=== PATIENT | female | born 1955 | race Caucasian/White ===

== ENCOUNTER 2016-05-28 14:25 | Inpatient (IN) | payer OTHER ==
[~2016-05-28] VITALS: Ht 157.5 cm; Wt 95.1 kg
[~2016-05-28 14:25] MED LIST: NAPROSYN500 MG PO; NOHOMEMEDS; PERCOCET 5/31 TABLET PO; RISPERDAL50 MG/2 ML IM
[2016-05-28] MEDS ORDERED: MELOXICAM7.5 MG PO (14:43)
[2016-05-28 16:21] LABS: HEMATOCRIT 34.6 % (36.0-46.0); MCH 29.3 PG (29.0-34.0); MCHC 32.1 G/DL (30.0-36.0); MCV 91.3 FL (83-99); MEAN PLAT.VOLUME 10.3 uM^3 (9.5-12.4); PLATELET COUNT 254 K/uL (156-360); RED BLOOD COUNT 3.79 M/uL (3.80-5.20); WHITE BLOOD COUNT 10.3 K/uL (4.1-10.2)
[2016-05-28 16:32] LABS: CHLORIDE 101 mEq/L (99-109); POTASSIUM 4.2 mEq/L (3.7-5.4); SODIUM 136 mEq/L (136-147)
[2016-05-28 16:33] LABS: GLUCOSE 99 mg/dL (70-99)
[2016-05-28 16:35] LABS: ANION GAP 10 MEQ/L (2-14)
[2016-05-28 16:37] LABS: GFR ESTIMATE (CALCULATED) > 59 mL/min/
[2016-05-28 16:38] LABS: UREA NITROGEN (BUN) 13 mg/dL (9-23)
[2016-05-28 16:43] LABS: TROP-I INTERPRETATION NEGATIVE; TROPONIN-I < 0.01 ng/mL (0.0-0.30)
[2016-05-28] MEDS ORDERED: RISPERDAL50 MG/2 ML IM (17:41)
[2016-05-28] MEDS ORDERED: THERAFLU MULTI1 EACH PO (17:42)
[2016-05-28] MEDS ORDERED: ROBITUSSIN100 MG/5 M PO (17:42)
[2016-05-28 21:15] VITALS: BP 161/79
[2016-05-29 06:29] LABS: HEMATOCRIT 32.9 % (36.0-46.0); MCH 29.4 PG (29.0-34.0); MCHC 32.2 G/DL (30.0-36.0); MCV 91.4 FL (83-99); PLATELET COUNT 235 K/uL (156-360); RBC DIS.WIDTH-SD 46.1 % (39-53); WHITE BLOOD COUNT 8.3 K/uL (4.1-10.2)
[2016-05-29 07:12] LABS: ANION GAP 7 MEQ/L (2-14); CHLORIDE 102 MEQ/L (99-109); GFR ESTIMATE (CALCULATED) > 59 mL/min/; GLUCOSE 77 mg/dL (70-99); POTASSIUM 3.9 MEQ/L (3.7-5.4); SAMPLE HEMOLYSIS CHECK 0; SAMPLE ICTERIC CHECK 0; SAMPLE LIPEMIA CHECK 0; SODIUM 136 MEQ/L (136-147); UREA NITROGEN (BUN) 11 mg/dL (9-23)
[2016-05-29 08:07] VITALS: BP 136/82
[2016-05-29 13:09] LABS: INTACT PARATHYROID HORMONE 7 pg/mL (10-69)
[2016-05-29 15:18] VITALS: BP 145/70
[2016-05-29 23:45] VITALS: BP 135/71
[2016-05-30 05:39] LABS: HEMATOCRIT 33.7 % (36.0-46.0); MCH 28.3 PG (29.0-34.0); MCHC 30.9 G/DL (30.0-36.0); MCV 91.8 FL (83-99); MEAN PLAT.VOLUME 10.9 uM^3 (9.5-12.4); PLATELET COUNT 229 K/uL (156-360); RBC DIS.WIDTH-SD 46.2 % (39-53); RED BLOOD COUNT 3.67 M/uL (3.80-5.20); WHITE BLOOD COUNT 9.2 K/uL (4.1-10.2)
[2016-05-30 06:22] LABS: ALKALINE PHOSPHATASE 185 IU/L (3-129); ANION GAP 5 MEQ/L (2-14); CHLORIDE 103 MEQ/L (99-109); GFR ESTIMATE (CALCULATED) > 59 mL/min/; GLUCOSE 95 mg/dL (70-99); POTASSIUM 4.1 MEQ/L (3.7-5.4); SAMPLE HEMOLYSIS CHECK 0; SAMPLE ICTERIC CHECK 0; SAMPLE LIPEMIA CHECK 0; SODIUM 136 MEQ/L (136-147); UREA NITROGEN (BUN) 12 mg/dL (9-23)
[2016-05-30 08:31] VITALS: BP 116/67
[2016-05-30 16:37] VITALS: BP 139/73
[2016-05-30 22:53] VITALS: BP 165/71
[2016-05-31 06:29] LABS: HEMATOCRIT 32.5 % (36.0-46.0); MCH 28.7 PG (29.0-34.0); MCHC 31.4 G/DL (30.0-36.0); MCV 91.5 FL (83-99); MEAN PLAT.VOLUME 10.9 uM^3 (9.5-12.4); PLATELET COUNT 222 K/uL (156-360); RBC DIS.WIDTH-CV 14.2 % (11.8-14.6); RED BLOOD COUNT 3.55 M/uL (3.80-5.20); WHITE BLOOD COUNT 7.4 K/uL (4.1-10.2)
[2016-05-31 06:54] LABS: ALKALINE PHOSPHATASE 177 IU/L (3-129); ANION GAP 6 MEQ/L (2-14); CHLORIDE 105 MEQ/L (99-109); GFR ESTIMATE (CALCULATED) > 59 mL/min/; GLUCOSE 80 mg/dL (70-99); SAMPLE HEMOLYSIS CHECK 1; SAMPLE ICTERIC CHECK 0; SAMPLE LIPEMIA CHECK 0; SODIUM 139 MEQ/L (136-147); TOTAL BILIRUBIN 1.2 MG/DL (0.0-1.0); UREA NITROGEN (BUN) 10 mg/dL (9-23)
[2016-05-31 07:41] LABS: INTER. NORMALIZED RATIO 1.2; PTT 27.5 (25-32)
[2016-05-31 16:57] VITALS: BP 150/71
[2016-05-31 20:05] VITALS: BP 142/72
[2016-05-31 21:14] VITALS: BP 157/72
[2016-06-01 08:01] VITALS: BP 125/74
[2016-06-01 08:18] LABS: HEMATOCRIT 34.1 % (36.0-46.0); MCH 28.6 PG (29.0-34.0); MCHC 31.7 G/DL (30.0-36.0); MCV 90.5 FL (83-99); MEAN PLAT.VOLUME 11.1 uM^3 (9.5-12.4); PLATELET COUNT 237 K/uL (156-360); RBC DIS.WIDTH-CV 14.4 % (11.8-14.6); RBC DIS.WIDTH-SD 47.1 % (39-53); RED BLOOD COUNT 3.77 M/uL (3.80-5.20); WHITE BLOOD COUNT 8.9 K/uL (4.1-10.2)
[2016-06-01 08:46] LABS: ANION GAP 9 MEQ/L (2-14); CHLORIDE 106 MEQ/L (99-109); GFR ESTIMATE (CALCULATED) > 59 mL/min/; GLUCOSE 79 mg/dL (70-99); POTASSIUM 3.6 MEQ/L (3.7-5.4); SAMPLE HEMOLYSIS CHECK 0; SAMPLE ICTERIC CHECK 0; SAMPLE LIPEMIA CHECK 0; SODIUM 138 MEQ/L (136-147); UREA NITROGEN (BUN) 9 mg/dL (9-23)
[2016-06-01 15:50] VITALS: BP 137/76
[2016-06-01 23:00] VITALS: BP 149/73
[2016-06-02 07:55] VITALS: BP 158/83
[2016-06-02 10:06] LABS: ANION GAP 10 MEQ/L (2-14); CHLORIDE 107 MEQ/L (99-109); GFR ESTIMATE (CALCULATED) > 59 mL/min/; SAMPLE HEMOLYSIS CHECK 0; SAMPLE ICTERIC CHECK 0; SAMPLE LIPEMIA CHECK 0; SODIUM 138 MEQ/L (136-147); UREA NITROGEN (BUN) 10 mg/dL (9-23)
[2016-06-02 10:10] LABS: GLUCOSE 120 mg/dL (70-99)
[2016-06-02 16:03] VITALS: BP 137/68
[2016-06-02] MEDS ORDERED: TRAMADOL HCL50 MG PO (16:05)
== END 2016-06-02 20:08 | DRG 598 ==
LOC: EME → EDBD 14:25 → EDOF 17:58 → 5EAST 17:58
PROVIDERS: Emergency Medicine; Hospitalist; Internal Medicine; Internal Medicine Hematology & Oncology; Radiology Diagnostic Radiology
PROC: 0FB13ZX Excision of Right Lobe Liver, Percutaneous Approach, Diagnostic (ICD-10-PCS; principal; 2016-05-31)
DX: C50.912 Malignant neoplasm of unspecified site of left female breast (principal); C78.7 Secondary malignant neoplasm of liver and intrahepatic bile duct; E83.52 Hypercalcemia; F25.9 Schizoaffective disorder, unspecified; J90 Pleural effusion, not elsewhere classified; E66.9 Obesity, unspecified; Z68.38 Body mass index [BMI] 38.0-38.9, adult; M51.35 Other intervertebral disc degeneration, thoracolumbar region; R59.0 Localized enlarged lymph nodes; Z87.19 Personal history of other diseases of the digestive system; Z93.2 Ileostomy status; Z60.2 Problems related to living alone
CPT/HCPCS: 70553; 71020; 71260; 72129; 72132; 74177; 76705; 77012; 80048; 80048 91; 80053; 83970; 84484; 85027; 85610; 85730; 88305; 88341 TC; 88342 TC; 93005; 94799; 99281; 99285; J1650; J1940; J2430; J3010; J7030; J7040

== ENCOUNTER 2016-06-02 16:43 | Inpatient (IN) | payer OTHER ==
[~2016-06-02] VITALS: Ht 157.5 cm; Wt 95.1 kg
[~2016-06-02 16:43] MED LIST changes: +MELOXICAM7.5 MG PO; +ROBITUSSIN100 MG/5 M PO; +THERAFLU MULTI1 EACH PO; +TRAMADOL HCL50 MG PO
[2016-06-02 20:25] VITALS: BP 146/79
[2016-06-03 00:05] LABS: POINT-OF-CARE METER ID UU13113830; POINT-OF-CARE USER ID ENVTLS63
[2016-06-03 00:27] LABS: HEMATOCRIT 32.4 % (36.0-46.0); MCH 29.4 PG (29.0-34.0); MCHC 32.7 G/DL (30.0-36.0); MEAN PLAT.VOLUME 10.9 uM^3 (9.5-12.4); PLATELET COUNT 228 K/uL (156-360); RBC DIS.WIDTH-CV 14.5 % (11.8-14.6); RBC DIS.WIDTH-SD 46.5 % (39-53); WHITE BLOOD COUNT 7.7 K/uL (4.1-10.2)
[2016-06-03 00:31] LABS: CHLORIDE 107 mEq/L (99-109); POTASSIUM 3.9 mEq/L (3.7-5.4); SODIUM 137 mEq/L (136-147)
[2016-06-03 00:33] LABS: GLUCOSE 115 mg/dL (70-99)
[2016-06-03 00:34] LABS: CARBON DIOXIDE (BICARBONATE) 25.4 MEQ/L (20-31)
[2016-06-03 00:35] LABS: ANION GAP 9 MEQ/L (2-14); TOTAL BILIRUBIN 0.9 mg/dL (0.0-1.0)
[2016-06-03 00:37] LABS: ALKALINE PHOSPHATASE 237 IU/L (3-129); GFR ESTIMATE (CALCULATED) > 59 mL/min/
[2016-06-03 00:38] LABS: INTER. NORMALIZED RATIO 1.2; PROTHROMBIN TIME 12.1 (9.2-11.2); UREA NITROGEN (BUN) 12 mg/dL (9-23)
[2016-06-03 00:44] LABS: TROP-I INTERPRETATION NEGATIVE; TROPONIN-I < 0.01 ng/mL (0.0-0.30)
== END 2016-06-03 00:40 | DRG 885 ==
LOC: 1WEST 16:43
PROVIDERS: Hospitalist; Psychiatry & Neurology Psychiatry
DX: F25.9 Schizoaffective disorder, unspecified (principal); E83.52 Hypercalcemia; Z93.2 Ileostomy status; C50.919 Malignant neoplasm of unspecified site of unspecified female breast; C79.9 Secondary malignant neoplasm of unspecified site
CPT/HCPCS: 36600; 71275; 74177; 80048; 80053; 81003; 82803; 82948; 83605; 84484; 85025; 85027; 85610; 87040; 93970

== ENCOUNTER 2016-06-03 00:41 | Inpatient (IN) | payer OTHER ==
[~2016-06-03] VITALS: Ht 157.5 cm; Wt 96.5 kg
[2016-06-03] VITALS (7 sets, daily range): BP systolic 138–172; BP diastolic 66–74
[2016-06-03 05:52] LABS: TROP-I INTERPRETATION NEGATIVE; TROPONIN-I < 0.01 ng/mL (0.0-0.30)
[2016-06-03 07:32] LABS: COLOR YELLOW ((YELLOW))
[2016-06-03 07:33] LABS: ADD MIUA? NO; BILIRUBIN NEGATIVE; BLOOD NEGATIVE; GLUCOSE (STRIP) NEGATIVE; KETONES NEGATIVE; LEUKOCYTES NEGATIVE; NITRITE NEGATIVE; PROTEIN (STRIP) NEGATIVE; SPECIFIC GRAVITY 1.016 (1.000-1.030); UCUL ADDED? NO; UROBILINOGEN 0.2 MG/DL (0.2-1.0)
[2016-06-03 13:10] LABS: HEMATOCRIT 31.6 % (36.0-46.0); MCH 29.3 PG (29.0-34.0); MCHC 32.6 G/DL (30.0-36.0); MEAN PLAT.VOLUME 11.1 uM^3 (9.5-12.4); PLATELET COUNT 216 K/uL (156-360); RBC DIS.WIDTH-CV 14.8 % (11.8-14.6); RBC DIS.WIDTH-SD 48.6 % (39-53); RED BLOOD COUNT 3.51 M/uL (3.80-5.20); WHITE BLOOD COUNT 6.2 K/uL (4.1-10.2)
[2016-06-03 13:38] LABS: TROP-I INTERPRETATION NEGATIVE; TROPONIN-I < 0.01 ng/mL (0.0-0.30)
[2016-06-03 13:57] LABS: ANION GAP 9 MEQ/L (2-14); CHLORIDE 105 MEQ/L (99-109); GFR ESTIMATE (CALCULATED) > 59 mL/min/; POTASSIUM 4.1 MEQ/L (3.7-5.4); SAMPLE HEMOLYSIS CHECK 0; SAMPLE ICTERIC CHECK 0; SAMPLE LIPEMIA CHECK 0; SODIUM 135 MEQ/L (136-147); UREA NITROGEN (BUN) 11 mg/dL (9-23)
[2016-06-03 13:58] LABS: GLUCOSE 84 mg/dL (70-99)
[2016-06-04 01:33] LABS: INFLUENZA A VIRAL ANTIGEN NEGATIVE; INFLUENZA B VIRAL ANTIGEN NEGATIVE
[2016-06-04 02:08] VITALS: BP 154/80
[2016-06-04 06:38] LABS: MCH 29.9 PG (29.0-34.0); MCHC 33.1 G/DL (30.0-36.0); MCV 90.4 FL (83-99); MEAN PLAT.VOLUME 11.5 uM^3 (9.5-12.4); PLATELET COUNT 242 K/uL (156-360); RBC DIS.WIDTH-CV 15.1 % (11.8-14.6); RBC DIS.WIDTH-SD 48.9 % (39-53); RED BLOOD COUNT 3.54 M/uL (3.80-5.20)
[2016-06-04 06:56] LABS: ANION GAP 13 MEQ/L (2-14); CHLORIDE 105 MEQ/L (99-109); GFR ESTIMATE (CALCULATED) > 59 mL/min/; GLUCOSE 76 mg/dL (70-99); POTASSIUM 4.1 MEQ/L (3.7-5.4); SAMPLE HEMOLYSIS CHECK 0; SAMPLE ICTERIC CHECK 0; SAMPLE LIPEMIA CHECK 0; SODIUM 137 MEQ/L (136-147); UREA NITROGEN (BUN) 12 mg/dL (9-23)
[2016-06-04 07:41] VITALS: BP 155/75
[2016-06-04 12:11] VITALS: BP 141/80
[2016-06-04 16:25] VITALS: BP 138/78
[2016-06-04 20:17] VITALS: BP 147/98
[2016-06-05] VITALS (7 sets, daily range): BP systolic 124–165; BP diastolic 63–73
[2016-06-05 08:33] LABS: HEMATOCRIT 32.2 % (36.0-46.0); MCH 29.5 PG (29.0-34.0); MCHC 32.6 G/DL (30.0-36.0); MCV 90.4 FL (83-99); MEAN PLAT.VOLUME 11.2 uM^3 (9.5-12.4); PLATELET COUNT 219 K/uL (156-360); RBC DIS.WIDTH-CV 14.9 % (11.8-14.6); RBC DIS.WIDTH-SD 49.1 % (39-53); RED BLOOD COUNT 3.56 M/uL (3.80-5.20); WHITE BLOOD COUNT 6.9 K/uL (4.1-10.2)
[2016-06-05 10:06] LABS: ANION GAP 7 MEQ/L (2-14); CHLORIDE 109 MEQ/L (99-109); GFR ESTIMATE (CALCULATED) > 59 mL/min/; GLUCOSE 86 mg/dL (70-99); POTASSIUM 3.9 MEQ/L (3.7-5.4); SAMPLE HEMOLYSIS CHECK 0; SAMPLE ICTERIC CHECK 0; SAMPLE LIPEMIA CHECK 0; SODIUM 138 MEQ/L (136-147); UREA NITROGEN (BUN) 14 mg/dL (9-23)
[2016-06-05 14:51] LABS: ALKALINE PHOSPHATASE 214 IU/L (3-129); DIRECT BILIRUBIN 0.4 mg/dL (0.0-0.3)
[2016-06-05 14:52] LABS: TOTAL BILIRUBIN 0.8 MG/DL (0.0-1.0)
[2016-06-06 04:00] VITALS: BP 150/79
[2016-06-06 08:01] VITALS: BP 135/65
[2016-06-06 11:37] VITALS: BP 131/64
[2016-06-06] MEDS ORDERED: LETROZOLE2.5 MG PO (15:32)
[2016-06-06 15:46] VITALS: BP 141/75
== END 2016-06-06 16:45 | DRG 436 ==
LOC: 5WEST 00:41 → 5SOUTH 10:12 → 5WEST 10:12 → 5SOUTH 06-04 01:47
PROVIDERS: Hospitalist; Internal Medicine; Nurse Practitioner Family; Physician Assistant
DX: C78.7 Secondary malignant neoplasm of liver and intrahepatic bile duct (principal); R50.81 Fever presenting with conditions classified elsewhere; C50.912 Malignant neoplasm of unspecified site of left female breast; C79.01 Secondary malignant neoplasm of right kidney and renal pelvis; G89.3 Neoplasm related pain (acute) (chronic); R10.9 Unspecified abdominal pain; E83.52 Hypercalcemia; J98.11 Atelectasis; J81.1 Chronic pulmonary edema; F25.9 Schizoaffective disorder, unspecified
CPT/HCPCS: 71010; 80048; 80048 91; 80076; 81003; 83605; 84484; 85027; 87040; 87502; J1650; J2543; J3370; J7050; J7120

== ENCOUNTER 2016-06-06 15:38 | Inpatient (IN) | payer OTHER ==
[~2016-06-06] VITALS: Ht 157.5 cm; Wt 97.2 kg
[~2016-06-06 15:38] MED LIST changes: +LETROZOLE2.5 MG PO
[2016-06-06 17:00] VITALS: BP 144/68
[2016-06-07 07:48] VITALS: BP 127/58
[2016-06-07 15:18] VITALS: BP 141/65
[2016-06-08 07:33] VITALS: BP 138/70
== END 2016-06-08 12:50 | disposition home or self-care (01) | DRG 885 ==
LOC: 1WEST 15:38
DX: F20.0 Paranoid schizophrenia (principal); C79.81 Secondary malignant neoplasm of breast; E83.52 Hypercalcemia; Z93.2 Ileostomy status

== ENCOUNTER 2016-07-07 11:38 | Inpatient (IN) | payer OTHER ==
[~2016-07-07] VITALS: Ht 157.5 cm; Wt 108.2 kg
[2016-07-07 12:24] LABS: HEMATOCRIT 30.8 % (36.0-46.0); MCH 28.6 PG (29.0-34.0); MCHC 32.8 G/DL (30.0-36.0); MCV 87.3 FL (83-99); MEAN PLAT.VOLUME 10.1 uM^3 (9.5-12.4); PLATELET COUNT 180 K/uL (156-360); RBC DIS.WIDTH-CV 15.6 % (11.8-14.6); RBC DIS.WIDTH-SD 47.8 % (39-53); RED BLOOD COUNT 3.53 M/uL (3.80-5.20); WHITE BLOOD COUNT 8.8 K/uL (4.1-10.2)
[2016-07-07 12:36] LABS: CHLORIDE 102 mEq/L (99-109); POTASSIUM 4.9 mEq/L (3.7-5.4); SODIUM 132 mEq/L (136-147)
[2016-07-07 12:38] LABS: GLUCOSE 70 mg/dL (70-99)
[2016-07-07 12:39] LABS: ANION GAP 10 MEQ/L (2-14)
[2016-07-07 12:42] LABS: GFR ESTIMATE (CALCULATED) > 59 mL/min/
[2016-07-07 12:43] LABS: UREA NITROGEN (BUN) 15 mg/dL (9-23)
[2016-07-07 12:49] LABS: TROP-I INTERPRETATION NEGATIVE; TROPONIN-I < 0.01 ng/mL (0.0-0.30)
[2016-07-07] MEDS ORDERED: ULTRAM50 MG PO (14:45)
[2016-07-07] MEDS ORDERED: LASIX20 MG PO (14:47)
[2016-07-07] MEDS ORDERED: LEVAQUIN500 MG PO (14:48)
[2016-07-07] MEDS ORDERED: TESSALON200 MG PO (14:48)
[2016-07-07 17:23] LABS: INTACT PARATHYROID HORMONE 6 pg/mL (10-69)
[2016-07-07 20:07] VITALS: BP 123/60
[2016-07-08] VITALS: BP 123/63
[2016-07-08 05:42] VITALS: BP 118/57
[2016-07-08 07:48] LABS: ANION GAP 6 MEQ/L (2-14); CHLORIDE 103 MEQ/L (99-109); GFR ESTIMATE (CALCULATED) > 59 mL/min/; GLUCOSE 61 mg/dL (70-99); POTASSIUM 4.3 MEQ/L (3.7-5.4); SAMPLE HEMOLYSIS CHECK 0; SAMPLE ICTERIC CHECK 0; SAMPLE LIPEMIA CHECK 0; SODIUM 136 MEQ/L (136-147); UREA NITROGEN (BUN) 14 mg/dL (9-23)
[2016-07-08 08:33] VITALS: BP 137/63
[2016-07-08 12:00] VITALS: BP 132/63
[2016-07-08 16:00] VITALS: BP 127/57
[2016-07-08 19:50] VITALS: BP 120/62
[2016-07-09] VITALS (8 sets, daily range): BP systolic 110–143; BP diastolic 59–87
[2016-07-09 06:41] LABS: HEMATOCRIT 30.1 % (36.0-46.0); MCH 28.6 PG (29.0-34.0); MCHC 32.2 G/DL (30.0-36.0); MCV 88.8 FL (83-99); MEAN PLAT.VOLUME 10.5 uM^3 (9.5-12.4); PLATELET COUNT 165 K/uL (156-360); RBC DIS.WIDTH-CV 16.1 % (11.8-14.6); RBC DIS.WIDTH-SD 51.4 % (39-53); RED BLOOD COUNT 3.39 M/uL (3.80-5.20); WHITE BLOOD COUNT 8.5 K/uL (4.1-10.2)
[2016-07-09 06:59] LABS: ANION GAP 8 MEQ/L (2-14); CHLORIDE 106 MEQ/L (99-109); SAMPLE HEMOLYSIS CHECK 0; SAMPLE ICTERIC CHECK 0; SAMPLE LIPEMIA CHECK 0; SODIUM 135 MEQ/L (136-147)
[2016-07-09 07:08] LABS: GFR ESTIMATE (CALCULATED) > 59 mL/min/; UREA NITROGEN (BUN) 11 mg/dL (9-23)
[2016-07-09 07:11] LABS: GLUCOSE 85 mg/dL (70-99)
[2016-07-10 09:34] VITALS: BP 155/69
[2016-07-10 10:04] LABS: ANION GAP 9 MEQ/L (2-14); CHLORIDE 106 MEQ/L (99-109); GFR ESTIMATE (CALCULATED) > 59 mL/min/; POTASSIUM 4.1 MEQ/L (3.7-5.4); SAMPLE HEMOLYSIS CHECK 0; SAMPLE ICTERIC CHECK 0; SAMPLE LIPEMIA CHECK 0; SODIUM 136 MEQ/L (136-147); UREA NITROGEN (BUN) 10 mg/dL (9-23)
[2016-07-10 10:05] LABS: GLUCOSE 132 mg/dL (70-99)
[2016-07-10 15:00] VITALS: BP 163/80
[2016-07-10 19:24] VITALS: BP 130/64
[2016-07-10 23:15] VITALS: BP 137/64
[2016-07-11 03:44] VITALS: BP 138/63
[2016-07-11 08:07] VITALS: BP 137/66
[2016-07-11 11:52] VITALS: BP 124/58
[2016-07-11 11:58] LABS: ANION GAP 7 MEQ/L (2-14); CHLORIDE 104 MEQ/L (99-109); GFR ESTIMATE (CALCULATED) > 59 mL/min/; GLUCOSE 111 mg/dL (70-99); POTASSIUM 4.5 MEQ/L (3.7-5.4); SAMPLE HEMOLYSIS CHECK 0; SAMPLE ICTERIC CHECK 0; SAMPLE LIPEMIA CHECK 0; SODIUM 137 MEQ/L (136-147); UREA NITROGEN (BUN) 11 mg/dL (9-23)
[2016-07-11 16:40] VITALS: BP 133/66
[2016-07-11 19:19] VITALS: BP 137/65
[2016-07-11 22:55] VITALS: BP 133/63
[2016-07-12 03:49] VITALS: BP 128/60
[2016-07-12 07:23] VITALS: BP 123/65
[2016-07-12 10:25] VITALS: BP 131/63
[2016-07-12 15:22] VITALS: BP 134/63
[2016-07-12 19:22] VITALS: BP 129/62
[2016-07-12 22:55] VITALS: BP 125/60
[2016-07-13 03:48] VITALS: BP 116/59
[2016-07-13 07:40] VITALS: BP 126/69
[2016-07-13 11:40] VITALS: BP 134/67
[2016-07-13 15:33] VITALS: BP 128/63
[2016-07-13 19:00] VITALS: BP 110/59
[2016-07-13 23:44] VITALS: BP 127/60
[2016-07-14 04:01] VITALS: BP 115/56
[2016-07-14 08:00] VITALS: BP 147/68
[2016-07-14 10:56] VITALS: BP 128/58
[2016-07-14 12:00] VITALS: BP 126/76
[2016-07-14 16:00] VITALS: BP 128/52
[2016-07-14 19:55] VITALS: BP 142/67
[2016-07-15] VITALS: BP 141/67
[2016-07-15 03:36] VITALS: BP 112/59
[2016-07-15 07:38] VITALS: BP 142/66
[2016-07-15 10:40] VITALS: BP 142/69
[2016-07-15 15:35] VITALS: BP 149/65
[2016-07-16 00:01] VITALS: BP 129/66
[2016-07-17] MEDS ORDERED: MORPHINE CON20 MG/M1 PO (11:52)
[2016-07-17] MEDS ORDERED: ATIVAN0.5 MG PO (11:52)
[2016-07-17] MEDS ORDERED: HYOSCYAMINE0.125 MG PO (11:52)
== END 2016-07-17 15:05 | DRG 641 ==
LOC: EME 11:38 → EDOF 14:34 → 5EAST 14:34
PROVIDERS: Hospitalist; Internal Medicine
DX: E83.59 Other disorders of calcium metabolism (principal); C50.412 Malignant neoplasm of upper-outer quadrant of left female breast; E87.1 Hypo-osmolality and hyponatremia; D63.8 Anemia in other chronic diseases classified elsewhere; F25.9 Schizoaffective disorder, unspecified; C78.7 Secondary malignant neoplasm of liver and intrahepatic bile duct; E66.9 Obesity, unspecified; Z91.19 Patient's noncompliance with other medical treatment and regimen; J90 Pleural effusion, not elsewhere classified; E87.70 Fluid overload, unspecified; Z68.41 Body mass index [BMI] 40.0-44.9, adult
CPT/HCPCS: 71020; 71275; 80048; 83880; 83970; 84484; 85027; 93005; 93970; 94640; 94760; 94799; 99202; 99281; 99284; J1650; J1940; J2794; J7030; J7644